=== PATIENT | female | born 1965 | race Caucasian/White ===

== ENCOUNTER 2019-03-16 10:10 | Emergency (ER) | payer BC ==
[~2019-03-16] VITALS: Ht 162.6 cm; Wt 61.2 kg
[2019-03-16] MEDS ORDERED: SODIUM CHLORIDE 0.9% 1000ML 1,000 ML IV STA (10:29)
[2019-03-16 10:53] LABS: BASOPHILS # (AUTO) 0.1 (0.0-0.1); BASOPHILS % 0.7 % (0.0-1.0); EOSINOPHILS # (AUTO) 0.1 (0.0-0.4); EOSINOPHILS % 1.1 % (0.0-6.0); HEMATOCRIT 40.8 % (34.2-44.1); HEMOGLOBIN 13.7 g/dL (12.0-16.0); LYMPHOCYTES # (AUTO) 2.4 (1.0-3.2); LYMPHOCYTES % 29.2 % (18.0-39.1); MEAN CORPUSCULAR HEMOGLOBIN 28.9 pg (28-32); MEAN CORPUSCULAR HGB CONC 33.6 g/dL (31-35); MEAN CORPUSCULAR VOLUME 86.1 fL (81-99); MONOCYTES # (AUTO) 0.6 (0.2-0.8); NEUTROPHILS # (AUTO) 5.1 (2.1-6.9); NEUTROPHILS % 61.8 % (38.7-80.0); PLATELET COUNT 276 x10e3/uL (140-360); RED BLOOD COUNT 4.74 x10e6/uL (3.6-5.1); RED CELL DISTRIBUTION WIDTH 13.2 % (11.7-14.4)
[2019-03-16 10:54] LABS: BILIRUBIN,URINE NEGATIVE (NEGATIVE); CLARITY,URINE SL CLOUDY (CLEAR); COLOR,URINE YELLOW (YELLOW); KETONES,URINE NEGATIVE (NEGATIVE); LEUKOCYTE ESTERASE ,URINE SMALL (NEGATIVE); NITRITE,URINE POSITIVE (NEGATIVE); PROTEIN,URINE DIPSTICK NEGATIVE (NEGATIVE); URINE UROBILINOGEN 0.2 mg/dL (0.2 - 1)
[2019-03-16 11:13] LABS: BACTERIA,URINE MANY /HPF; EPITHELIAL CELLS,URINE MODERATE /LPF
[2019-03-16 11:24] LABS: ALANINE AMINOTRANSFERASE 23 IU/L (0-55); ALBUMIN/GLOBULIN RATIO 1.3 (0.8-2.0); ALKALINE PHOSPHATASE 85 IU/L (40-150); ANION GAP 12.6 mmol/L (8-16); BLOOD UREA NITROGEN 6 mg/dL (7-26); BUN/CREATININE RATIO 7 (6-25); CALCIUM 10.3 mg/dL (8.4-10.2); CARBON DIOXIDE 30 mmol/L (22-29); CHLORIDE 100 mmol/L (98-107); CREATINE KINASE 56 IU/L (29-168); CREATININE, SERUM 0.86 mg/dL (0.57-1.11); EST GLOMERULAR FILTRATION RATE > 60 ML/MIN (60-); GLUCOSE 85 mg/dL (74-118); SODIUM 140 mmol/L (136-145)
[2019-03-16 11:29] LABS: INR 0.87; PARTIAL THROMBOPLASTIN TIME 32.4 seconds (23.8-35.5); PROTHROMBIN TIME 12.3 seconds (11.9-14.5)
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
[2019-03-16 11:37] LABS: POTASSIUM 2.6 mmol/L (3.5-5.1)
[2019-03-16] MEDS ORDERED: CEFTRIAXONE SOD 1 GM/NS 50 ML 50 ML IV ONE (11:45)
[2019-03-16] MEDS ORDERED: POTASSIUM CHLORIDE 20 MEQ TAB CR PO ONE (12:00)
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
--- NOTE | 2019-03-16 12:28 | Diagnostic Imaging Report ---
History: Fall Comparison studies: None Technique: Axial images were obtained through the cervical region.. Coronal and sagittal images reconstructed from the axial data. Dose modulation, iterative reconstruction, and/or weight based adjustment of the mA/kV was utilized to reduce the radiation dose to as low as reasonably achievable. Intravenous contrast: None Findings: Fractures: None. Soft tissues: No gross abnormalities. Atlantoaxial articulation: Mildly degenerated. Alignment: Slight reversal of the usual lordosis is centered at C5.. No scoliosis. Cervicomedullary junction: No abnormalities. The foramen magnum is patent. Vertebrae: No infection or neoplasm. Degenerative changes: Mildly degenerated disc at C4-5, moderate at C5-6, mild at C6-7. The degenerative changes at C5-6 associated with focal vacuum phenomena within the C5 vertebral body. Mild right foraminal stenosis at C4-5, moderate bilaterally at C5-6 due to facet and uncovertebral arthrosis. Mild spinal canal stenosis at C5-6 due to a disc osteophyte complex. IMPRESSION: 1. No acute abnormalities. 2. Cannot adequately evaluate for ligament, spinal cord and or vascular abnormalities. 3. Degenerative changes as described. Signed by: Dr. Ed Wayne M.D. on 03/16/2019 12:25 PM
--- NOTE | 2019-03-16 12:30 | Diagnostic Imaging Report ---
History:Fall Comparison studies: None Technique: Axial images were obtained through the maxillofacial region. Coronal and sagittal images reconstructed from the axial data. Dose modulation, iterative reconstruction, and/or weight based adjustment of the mA/kV was utilized to reduce the radiation dose to as low as reasonably achievable. Intravenous contrast: None Findings: Soft tissues: No abnormalities. Bones: No fractures or bone abnormalities. Orbits: Globes: Intact Extra or intraconal abnormalities: None. Paranasal sinuses: Clear IMPRESSION: No maxillofacial abnormalities. Signed by: Dr. Ed Wayne M.D. on 03/16/2019 12:26 PM
[2019-03-16 13:51] VITALS: BP 103/64
== END 2019-03-16 13:15 | disposition home or self-care (01) ==
LOC: ER 10:10
DX: R55 Syncope and collapse (principal); S00.83XA Contusion of other part of head, initial encounter; S00.532A Contusion of oral cavity, initial encounter; M25.512 Pain in left shoulder; Y92.008 Other place in unspecified non-institutional (private) residence as the place of occurrence of the external cause; N30.91 Cystitis, unspecified with hematuria; K52.9 Noninfective gastroenteritis and colitis, unspecified; E87.6 Hypokalemia
CPT/HCPCS: 36415; 70450; 70486; 71045; 72125; 80053; 81001; 82550; 82553; 84484; 85025; 85610; 85730; 93005; 99284; J0696; J7030

== ENCOUNTER 2021-05-06 08:11 | Emergency (ER) | payer BC ==
[~2021-05-06] VITALS: Ht 162.6 cm; Wt 61.2 kg
[2021-05-06] MEDS ORDERED: CLEOCIN HCL300 MG PO (08:28)
[2021-05-06] MEDS ORDERED: ACETAMINOPHEN-1 EAC4 PO (08:28)
== END 2021-05-06 08:33 | disposition home or self-care (01) ==
LOC: FSED 08:23
DX: K11.5 Sialolithiasis (principal)
CPT/HCPCS: 99283

== ENCOUNTER 2023-11-29 13:57 | Emergency (ER) | payer BC ==
[~2023-11-29] VITALS: Ht 162.6 cm; Wt 56.4 kg
[~2023-11-29 13:57] MED LIST: ACETAMINOPHEN-1 EAC4 PO; CLEOCIN HCL300 MG PO
[2023-11-29 14:00] VITALS: O2SAT 97
[2023-11-29] MEDS ORDERED: CLINDAMYCIN HC300 MG PO (14:31)
[2023-11-29] MEDS ORDERED: ULTRAM 50MG50 MG PO (14:32)
== END 2023-11-29 14:45 | disposition home or self-care (01) ==
LOC: FSED 14:00
DX: K13.79 Other lesions of oral mucosa (principal); M27.2 Inflammatory conditions of jaws
CPT/HCPCS: 99283